=== PATIENT | male | born 1990 | race Caucasian/White ===

== ENCOUNTER 2017-04-23 09:58 | Emergency (ER) | payer OTHER, BC ==
[~2017-04-23] VITALS: Ht 177.8 cm; Wt 95.4 kg
[~2017-04-23 09:58] MED LIST: CHILD ASPIRIN81 M1 PO; NOHOMEMEDS; SUBOXONE 8 MG-1 EAC2 SL; TORADOL10 MG PO
[2017-04-23 10:51] LABS: BASOPHIL COUNT 0.1 K/uL (0-0.1); EOSINOPHIL (%) 1.2 % (0-5); EOSINOPHIL COUNT 0.2 K/uL (0-0.3); HEMATOCRIT 44.9 % (38.0-50.0); IMMATURE GRANULOCYTE (%) 0.6 % (0.0-0.7); IMMATURE GRANULOCYTE COUNT 0.1 K/uL; INSTRUMENT ABS NEUTROPHIL CT 7.5 K/uL; LYMPHOCYTE COUNT 3.7 K/uL (1.0-2.8); MCH 29.3 PG (29.0-34.0); MCHC 34.3 G/DL (30.0-36.0); MCV 85.4 FL (86-99); MEAN PLAT.VOLUME 11.2 uM^3 (9.0-12.4); MONOCYTE (%) 6.4 % (3-12); MONOCYTE COUNT 0.8 K/uL (0-0.8); NEUTROPHIL (%) 61.1 % (45-76); NEUTROPHIL COUNT 7.5 K/uL (1.8-6.4); PLATELET COUNT 200 K/uL (156-360); RBC DIS.WIDTH-CV 12.1 % (11.8-14.6); RBC DIS.WIDTH-SD 37.5 % (39-53); RED BLOOD COUNT 5.26 M/uL (4.00-5.50); WHITE BLOOD COUNT 12.2 K/uL (4.1-10.2)
[2017-04-23 11:00] LABS: CHLORIDE 104 mEq/L (99-109); POTASSIUM 3.8 mEq/L (3.7-5.4); SODIUM 138 mEq/L (136-147)
[2017-04-23 11:02] LABS: GLUCOSE 116 mg/dL (70-99)
[2017-04-23 11:03] LABS: ANION GAP 12 MEQ/L (2-14)
[2017-04-23 11:05] LABS: GFR ESTIMATE (CALCULATED) > 59 mL/min/
[2017-04-23 11:06] LABS: UREA NITROGEN (BUN) 12 mg/dL (9-23)
[2017-04-23] MEDS ORDERED: MOTRIN800 MG PO (12:59)
[2017-04-23 13:12] VITALS: BP 124/72
== END 2017-04-23 13:21 | disposition home or self-care (01) ==
LOC: EME 09:58 → TRA 09:58
PROVIDERS: Emergency Medicine
DX: S20.219A Contusion of unspecified front wall of thorax, initial encounter (principal); S30.1XXA Contusion of abdominal wall, initial encounter; S80.12XA Contusion of left lower leg, initial encounter; V40.5XXA Car driver injured in collision with pedestrian or animal in traffic accident, initial encounter; Y92.411 Interstate highway as the place of occurrence of the external cause; M06.9 Rheumatoid arthritis, unspecified; F17.200 Nicotine dependence, unspecified, uncomplicated
CPT/HCPCS: 70450; 71260; 72125; 72128; 72129; 72131; 72132; 73590; 74177; 80048; 85025; 99281; 99284

== ENCOUNTER 2017-05-23 11:48 | Emergency (ER) | payer BC ==
[~2017-05-23] VITALS: Ht 177.8 cm; Wt 102.6 kg
[~2017-05-23 11:48] MED LIST changes: +MOTRIN800 MG PO
[2017-05-23 12:44] LABS: HEMATOCRIT 44.7 % (38.0-50.0); MCH 29.6 PG (29.0-34.0); MCHC 34.7 G/DL (30.0-36.0); MCV 85.5 FL (86-99); MEAN PLAT.VOLUME 11.5 uM^3 (9.0-12.4); PLATELET COUNT 188 K/uL (156-360); RBC DIS.WIDTH-CV 11.9 % (11.8-14.6); RBC DIS.WIDTH-SD 37.2 % (39-53); RED BLOOD COUNT 5.23 M/uL (4.00-5.50)
[2017-05-23 12:55] LABS: CHLORIDE 104 mEq/L (99-109); POTASSIUM 4.1 mEq/L (3.7-5.4); SODIUM 138 mEq/L (136-147)
[2017-05-23 12:56] LABS: GLUCOSE 104 mg/dL (70-99)
[2017-05-23 12:58] LABS: ANION GAP 10 MEQ/L (2-14)
[2017-05-23 13:00] LABS: GFR ESTIMATE (CALCULATED) > 59 mL/min/
[2017-05-23 13:01] LABS: UREA NITROGEN (BUN) 11 mg/dL (9-23)
[2017-05-23 13:04] LABS: TROP-I INTERPRETATION NEGATIVE; TROPONIN-I < 0.01 ng/mL (0.0-0.30)
[2017-05-23] MEDS ORDERED: MOTRIN600 MG PO (13:39)
[2017-05-23 13:56] VITALS: BP 136/77
== END 2017-05-23 13:58 | disposition home or self-care (01) ==
LOC: RME 11:48 → EME 11:48 → RME 13:58
DX: R07.89 Other chest pain (principal); M06.9 Rheumatoid arthritis, unspecified; F17.200 Nicotine dependence, unspecified, uncomplicated
CPT/HCPCS: 71020; 80048; 84484; 85027; 93005; 99281; 99284